=== PATIENT | female | born 1985 | race Caucasian/White ===

== ENCOUNTER 2021-04-12 09:52 | Emergency (ER) | payer OTHER, SELFPAY ==
[2021-04-12 10:12] VITALS: BP 121/87; PULSE 97; RESP 20; TEMP 37.1; O2SAT 100
--- NOTE | 2021-04-12 11:06 | ED.URI ---
HPI - URI/Sore Throat General Chief Complaint: Upper Respiratory Infection Stated Complaint: Sore Throat/ Congestion Time Seen by Provider: 04/12/21 10:50 Source: patient and RN notes reviewed Mode of arrival: ambulatory Limitations: no limitations History of Present Illness HPI Narrative: Patient presents today complaining of sore throat, fatigue, and subjective fever since yesterday. Denies any additional symptoms to include cough, congestion, rhinorrhea, ear pain. She currently rates her pain 5/10 and has been taking Tylenol and ibuprofen with mild relief. MD elicited complaint: sore throat Related Data Home Medications Medication Instructions Recorded Confirmed ibuprofen 400 mg PO DAILY 04/12/21 04/12/21 Allergies Allergy/AdvReac Type Severity Reaction Status Date / Time No Known Drug Allergies Allergy Unknown Unknown Verified 04/12/21 10:29 Review of Systems Review of Systems: CONSTITUTIONAL: Denies body aches, chills, or sweats.+ Fatigue, subjective fever EYES: Denies visual changes, redness, or discharge. ENT: Denies rhinorrhea, congestion, or otalgia.+ Sore throat CARDIOVASCULAR: Denies chest pain, palpitations, or edema. RESPIRATORY: Denies cough or dyspnea. GASTROINTESTINAL: Denies abdominal pain, nausea, vomiting, or diarrhea. GENITOURINARY: Denies dysuria or hematuria. SKIN: Denies rash, itching, or wounds. MUSCULOSKELETAL: Denies back pain, joint pain, or myalgia. NEUROLOGIC: Denies headache, numbness, tingling, or weakness. PSYCH: Denies depression or anxiety. PMFSH Comments At time of signature, I have reviewed and agree with nursing past medical, surgical, social and family history unless otherwise noted. Please see nursing chart for further information. There is no relevant family history pertinent to the presenting complaint Exam Narrative: GENERAL: Well-appearing, well-nourished, and in no acute distress. HEAD: Normocephalic, atraumatic. EYES: EOMI. No redness or drainage. Conjunctivae normal. ENT: Mucous membranes pink and moist. Nares clear. No rhinorrhea. TMs normal bilaterally. Throat mildly erythematous without edema or exudate. Uvula midline. NECK: Normal AROM. Supple. No lymphadenopathy. CHEST: No respiratory distress. Clear to auscultation. HEART: Regular rate and rhythm. No murmur appreciated. Normal peripheral pulses. EXTREMITIES: Normal range of motion. No edema. SKIN: Warm, dry, no rash. Capillary refill normal. Normal skin turgor. NEURO: No focal deficits. Alert and oriented x3. Gait steady. PSYCH: Normal affect. No signs of depression or anxiety. Course Vital Signs Vital signs: Vital Signs Temperature 98.8 F 04/12/21 10:12 Pulse Rate 97 04/12/21 10:12 Respiratory Rate 20 04/12/21 10:12 Blood Pressure 121/87 04/12/21 10:12 Pulse Oximetry 100 04/12/21 10:12 Temperature 98.8 F 04/12/21 10:12 Pulse Rate 97 04/12/21 10:12 Respiratory Rate 20 04/12/21 10:12 Blood Pressure 121/87 04/12/21 10:12 Pulse Oximetry 100 04/12/21 10:12 Reviewed. Pt has been instructed to follow up with her PCP regarding her elevated blood pressure today. MDM - URI/Sore Throat Differential Diagnosis Differential diagnosis: Likely upper respiratory infection, viral infection, pharyngitis and other (Strep throat) Lab Data Attestation: I reviewed the patient's lab results. Labs: Strep Screen Presumptive Negative *(Reference Range: Negative)* Critical Care Time Critical Care Time Critical Care Time: No Discharge Plan Discharge Clinical Impression: Pharyngitis Qualifiers: Pharyngitis/tonsillitis etiology: unspecified etiology Qualified Code(s): J02.9 - Acute pharyngitis, unspecified Patient Disposition: Home, Self-Care Condition: Stable Instructions: Pharyngitis (ED) Additional Instructions: Your rapid strep swab was negative today at [facility]. You will be notified in a few
== END 2021-04-12 11:15 | disposition home or self-care (01) ==
PROVIDERS: Emergency Provider Nurse Practitioner
DX: J02.9 Acute pharyngitis, unspecified (principal); R03.0 Elevated blood-pressure reading, without diagnosis of hypertension; L40.50 Arthropathic psoriasis, unspecified
CPT/HCPCS: 87081; 87880; 99213; G0463